=== PATIENT | male | born 1995 | race African-American/Black ===

== ENCOUNTER 2016-10-02 14:29 | Emergency (ER) | payer SELFPAY ==
[~2016-10-02] VITALS: Ht 177.8 cm; Wt 130.0 kg
[2016-10-02 14:32] VITALS: BP 154/78; PULSE 101; RESP 18; TEMP 101.3; O2SAT 98
--- NOTE | 2016-10-02 14:41 | PD ---
Physical Exam Date Seen by Provider: Oct 02, 2016 Time Seen by Provider: 14:39 Narrative 21 yo male here for N/V/D. This started today. Fever noted. No abdominal pain. No one else sick. No allergies. Vomit x 3. Vitals are stable in triage. Awaiting bed placement. Data Data Last Documented VS Vital Signs Date Time Temp Pulse Resp B/P Pulse Ox O2 Delivery O2 Flow Rate FiO2 10/02/16 14:32 101.3 101 18 154/78 98 Room Air [facility] Medical Record Reviewed: Yes Supervised Visit with GORDON: No Scripts No Active Prescriptions or Reported Meds Aries Priest Oct 02, 2016 14:41
[2016-10-02] MEDS ORDERED: SODIUM CHLOR 0.9% 1000 ML INJ 1,000 ML IV SCH (14:53)
[2016-10-02] MEDS ORDERED: SODIUM CHLORIDE 0.9% FLUSH 10 ML FLUSH IV FLUSH PRN (15:00)
[2016-10-02] MEDS ORDERED: ONDANSETRON HCL 4 MG/2 ML VIAL IVP ONE (15:00)
--- NOTE | 2016-10-02 15:04 | PD ---
HPI Chief Complaint: GI Complaint Time Seen by Provider: 14:45 Travel History International Travel<30 days: No Contact w/Intl Traveler<30days: No Traveled to known affect area: No History of Present Illness HPI 21-year-old male with chief complaint of nausea vomiting diarrhea since 5 AM. He denies abdominal pain. He reports multiple family members with cough,cold, flu-type symptoms. He reports at least 4 episodes of vomiting today and 3 episodes of loose nonbloody stools. He was noted to have a fever in triage. He denies headache, chest pain, abdominal pain, dysuria. Symptoms severity is mild to moderate. No aggravating or alleviating factors. PFSH Past Medical History Medical History: Denies Significant Hx Diabetes: No Social History Alcohol Use: No Tobacco Use: No Substance Use: No Allergies-Medications (Allergen,Severity, Reaction): Coded Allergies: No Known Allergies (Verified , 10/02/16) Reported Meds & Prescriptions Reported Meds & Active Scripts Active No Active Prescriptions or Reported Medications Review of Systems Except as stated in HPI: all other systems reviewed are Neg Eyes: No: Visual changes HENT: No: Headaches Cardiovascular: No: Chest Pain or Discomfort Respiratory: No: Shortness of Breath Gastrointestinal: Positive: Nausea, Vomiting, Diarrhea Physical Exam Narrative GENERAL: Alert, well-appearing male in no acute distress. Patient resting comfortably on bed. SKIN: Focused skin assessment warm/dry. HEAD: Atraumatic. Normocephalic. EYES: Pupils equal and round. No scleral icterus. No injection or drainage. ENT: No nasal bleeding or discharge. Mucous membranes pink and moist. NECK: Trachea midline. No JVD. CARDIOVASCULAR: Regular rate and rhythm. No murmur appreciated. RESPIRATORY: No accessory muscle use. Clear to auscultation. Breath sounds equal bilaterally. GASTROINTESTINAL: Abdomen soft, non-tender, nondistended. Hepatic and splenic margins not palpable. MUSCULOSKELETAL: No obvious deformities. No clubbing. No cyanosis. No edema. NEUROLOGICAL: Awake and alert. No obvious cranial nerve deficits. Motor grossly within normal limits. Normal speech. PSYCHIATRIC: Appropriate mood and affect; insight and judgment normal. Data Data Last Documented VS Vital Signs Date Time Temp Pulse Resp B/P Pulse Ox O2 Delivery O2 Flow Rate FiO2 10/02/16 16:40 100.2 90 20 127/58 95 Room Air Orders Complete Blood Count With Diff (10/02/16 14:53) Comprehensive Metabolic Panel (10/02/16 14:53) Lipase (10/02/16 14:53) Urinalysis - C+S If Indicated (10/02/16 14:53) Iv Access Insert/Monitor (10/02/16 14:53) Ondansetron Inj (Zofran Inj) (10/02/16 15:00) Sodium Chlor 0.9% 1000 Ml Inj (Ns 1000 M (10/02/16 14:53) Sodium Chloride 0.9% Flush (Ns Flush) (10/02/16 15:00) Acetaminophen (Tylenol) (10/02/16 15:30) Labs Laboratory Tests Test 10/02/16 10/02/16 15:15 16:07 White Blood Count 4.9 TH/MM3 Red Blood Count 6.70 MIL/MM3 Hemoglobin 17.7 GM/DL Hematocrit 53.0 % Mean Corpuscular Volume 79.2 FL Mean Corpuscular Hemoglobin 26.4 PG Mean Corpuscular Hemoglobin 33.4 % Concent Red Cell Distribution Width 12.7 % Platelet Count 172 TH/MM3 Mean Platelet Volume 9.0 FL Neutrophils (%) (Auto) 81.0 % Lymphocytes (%) (Auto) 7.8 % Monocytes (%) (Auto) 10.9 % Eosinophils (%) (Auto) 0.0 % Basophils (%) (Auto) 0.3 % Neutrophils # (Auto) 3.9 TH/MM3 Lymphocytes # (Auto) 0.4 TH/MM3 Monocytes # (Auto) 0.5 TH/MM3 Eosinophils # (Auto) 0.0 TH/MM3 Basophils # (Auto) 0.0 TH/MM3 CBC Comment DIFF FINAL Differential Comment Sodium Level 138 MEQ/L Potassium Level 3.8 MEQ/L Chloride Level 105 MEQ/L Carbon Dioxide Level 21.9 MEQ/L Anion Gap 11 MEQ/L Blood Urea Nitrogen 12 MG/DL Creatinine 1.50 MG/DL Estimat Glomerular Filtration 72 ML/MIN Rate Random Glucose 93 MG/DL Calcium Level 9.0 MG/DL Total Bilirubin 0.5 MG/DL Aspartate Amino Transf 17 U/L (AST/SGOT) Alanine Aminotransferase 23 U/L (ALT/SGPT) Alkaline Phosphatase 84 U/L Total Protein 8.5 GM/DL Albumin 4.3 GM/DL Lipase 125 U/L Urine Color LIGHT-YELLOW Urine Turbidity CLEAR Urine pH 6.5 Urine Specific [place] 1.007 Urine Protein 100 mg/dL Urine Glucose (UA) NEG mg/dL Urine Ketones NEG mg/dL Urine Occult Blood SMALL Urine Nitrite NEG Urine Bilirubin NEG Urine Urobilinogen LESS THAN 2.0 MG/DL Urine Leukocyte Esterase NEG Urine RBC 6 /hpf Urine WBC 3 /hpf Microscopic Urinalysis Comment CULT NOT INDICATED MDM Medical Decision Making Medical Screen Exam Complete: Yes Emergency Medical Condition: Yes Differential Diagnosis viral gastroenteritis, gastritis, dehydration Narrative Course 21 yo male with n/v/d since 5 am. no and pain. His physical exam is reassuring. His abdomen is soft and nontender. IV access established, labs ordered and pending, UA pending, 1 L normal saline and Zofran administered. CBC unremarkable BMP mild elevation of BUN/CR likely caused by mild dehydration, patient received IV fluids in ED UA negative for infection Patient reassessed he reports symptom improvement. He has had no vomiting while in the ED. His abdomen was reassessed. It is soft and nontender. Return precautions discussed. Patient verbalized understanding and agrees to plan. Diagnosis Primary Impression: Viral gastroenteritis Referrals: Primary Care Physician Additional Instructions: Stay well hydrated by drinking plenty of fluids. Eat a bland diet Return to the emergency department if he developed new or worsening symptoms such as abdominal pain. Scripts Promethazine (Phenergan)25 Mg [id number] Mg PO Q6H PRN (NAUSEA OR VOMITING) #12 TAB Ref 0 Prov:Charla Al 10/02/16 Disposition: 01 DISCHARGE HOME Condition: Stable Charla Al Oct 02, 2016 15:04
[2016-10-02 15:24] VITALS: TEMP 101.9
[2016-10-02] MEDS ORDERED: ACETAMINOPHEN 500 MG CPLT PO ONE (15:30)
[2016-10-02 15:49] LABS: AUTOMATED NEUTROPHIL # 3.9 TH/MM3 (1.8-7.7); BASOPHIL % 0.3 % (0.0-2.0); HEMO FLAGS DIFF FINAL; LYMPH % 7.8 % (9.0-44.0); LYMPHOCYTE # 0.4 TH/MM3 (1.0-4.8); MEAN CELL VOLUME 79.2 FL (80.0-100.0); MEAN CORPUSCULAR HEMOGLOBIN 26.4 PG (27.0-34.0); MEAN CORPUSCULAR HGB CONC 33.4 % (32.0-36.0); MONO % 10.9 % (0.0-8.0); PLATELET COUNT 172 TH/MM3 (150-450); RED CELL DISTRIBUTION WIDTH 12.7 % (11.6-17.2); WHITE BLOOD COUNT 4.9 TH/MM3 (4.0-11.0)
[2016-10-02 16:13] LABS: ALT (GPT) 23 U/L (9-52); ANION GAP 11 MEQ/L (5-15); AST (GOT) 17 U/L (15-39); BICARBONATE 21.9 MEQ/L (21.0-32.0); BLOOD UREA NITROGEN 12 MG/DL (7-18); CHLORIDE 105 MEQ/L (98-107); GLOMERULAR FILTRATION RATE 72 ML/MIN (>89); POTASSIUM 3.8 MEQ/L (3.5-5.1); SODIUM (NA) 138 MEQ/L (136-145)
[2016-10-02 16:15] LABS: ALKALINE PHOSPHATASE 84 U/L (45-117); TOTAL BILIRUBIN ADULT 0.5 MG/DL (0.2-1.0)
[2016-10-02 16:33] LABS: BLOOD, URINE SMALL (NEG); COMMENT (UR) CULT NOT INDICATED; CULTURE IF INDICATED CULT NOT INDICATED; GLUCOSE,URINE NEG (NEG); KETONE, URINE NEG (NEG); NITRITE,URINE NEG (NEG); PH, URINE 6.5 (5.0-8.5); URINE COLOR LIGHT-YELLOW (YELLW/STRAW)
[2016-10-02 16:40] VITALS: BP 127/58; PULSE 90; RESP 20; TEMP 100.2; O2SAT 95
[2016-10-02] MEDS ORDERED: PROM25TA10 PO (16:52)
--- NOTE | 2016-10-02 17:16 | PD ---
Data Data Last Documented VS Vital Signs Date Time Temp Pulse Resp B/P Pulse Ox O2 Delivery O2 Flow Rate FiO2 10/02/16 16:40 100.2 90 20 127/58 95 Room Air Orders Complete Blood Count With Diff (10/02/16 14:53) Comprehensive Metabolic Panel (10/02/16 14:53) Lipase (10/02/16 14:53) Urinalysis - C+S If Indicated (10/02/16 14:53) Iv Access Insert/Monitor (10/02/16 14:53) Ondansetron Inj (Zofran Inj) (10/02/16 15:00) Sodium Chlor 0.9% 1000 Ml Inj (Ns 1000 M (10/02/16 14:53) Sodium Chloride 0.9% Flush (Ns Flush) (10/02/16 15:00) Acetaminophen (Tylenol) (10/02/16 15:30) Labs Laboratory Tests Test 10/02/16 10/02/16 15:15 16:07 White Blood Count 4.9 TH/MM3 Red Blood Count 6.70 MIL/MM3 Hemoglobin 17.7 GM/DL Hematocrit 53.0 % Mean Corpuscular Volume 79.2 FL Mean Corpuscular Hemoglobin 26.4 PG Mean Corpuscular Hemoglobin 33.4 % Concent Red Cell Distribution Width 12.7 % Platelet Count 172 TH/MM3 Mean Platelet Volume 9.0 FL Neutrophils (%) (Auto) 81.0 % Lymphocytes (%) (Auto) 7.8 % Monocytes (%) (Auto) 10.9 % Eosinophils (%) (Auto) 0.0 % Basophils (%) (Auto) 0.3 % Neutrophils # (Auto) 3.9 TH/MM3 Lymphocytes # (Auto) 0.4 TH/MM3 Monocytes # (Auto) 0.5 TH/MM3 Eosinophils # (Auto) 0.0 TH/MM3 Basophils # (Auto) 0.0 TH/MM3 CBC Comment DIFF FINAL Differential Comment Sodium Level 138 MEQ/L Potassium Level 3.8 MEQ/L Chloride Level 105 MEQ/L Carbon Dioxide Level 21.9 MEQ/L Anion Gap 11 MEQ/L Blood Urea Nitrogen 12 MG/DL Creatinine 1.50 MG/DL Estimat Glomerular Filtration 72 ML/MIN Rate Random Glucose 93 MG/DL Calcium Level 9.0 MG/DL Total Bilirubin 0.5 MG/DL Aspartate Amino Transf 17 U/L (AST/SGOT) Alanine Aminotransferase 23 U/L (ALT/SGPT) Alkaline Phosphatase 84 U/L Total Protein 8.5 GM/DL Albumin 4.3 GM/DL Lipase 125 U/L Urine Color LIGHT-YELLOW Urine Turbidity CLEAR Urine pH 6.5 Urine Specific [place] 1.007 Urine Protein 100 mg/dL Urine Glucose (UA) NEG mg/dL Urine Ketones NEG mg/dL Urine Occult Blood SMALL Urine Nitrite NEG Urine Bilirubin NEG Urine Urobilinogen LESS THAN 2.0 MG/DL Urine Leukocyte Esterase NEG Urine RBC 6 /hpf Urine WBC 3 /hpf Microscopic Urinalysis Comment CULT NOT INDICATED MDM Supervised Visit with GORDON: Yes Narrative Course The history, exam, and medical decision-making in the associated midlevel provider note were completed with my assistance. I reviewed and agree with the findings presented. I attest that I had a [id number] encounter with the patient on the same day, and personally performed and documented my assessment and findings in the medical record. *My assessment and Findings: This is a 21-year-old male who presents to the emergency department with nausea vomiting and diarrhea. He has a fever here. Multiple family members are sick with similar symptoms. He has a completely benign abdomen and denies any abdominal pain. I discussed with him the signs and symptoms of appendicitis and he'll return to the emergency department if he develops abdominal pain. I suspect he is gastroenteritis. Feels much better after antiemetics and IV fluids. I think is appropriate for outpatient management. Diagnosis Primary Impression: Viral gastroenteritis Referrals: Primary Care Physician Patient Instructions: General Instructions Departure Forms: Tests/Procedures Additional Instruction: Stay well hydrated by drinking plenty of fluids. Eat a bland diet Return to the emergency department if he developed new or worsening symptoms such as abdominal pain. Scripts Promethazine (Phenergan)25 Mg [id number] Mg PO Q6H PRN (NAUSEA OR VOMITING) #12 TAB Ref 0 Prov:Charla AlP 10/02/16 Disposition: 01 DISCHARGE HOME Condition: Stable Steff Hernandez MD Oct 02, 2016 17:15
== END 2016-10-02 17:17 | disposition home or self-care (01) ==
LOC: NEPD 14:29
DX: A08.4 Viral intestinal infection, unspecified (principal); E86.0 Dehydration
CPT/HCPCS: 80053; 81001; 83690; 85025; 96361; 96374; 99284; J2405; J7030

== ENCOUNTER 2017-02-22 13:47 | Emergency (ER) | payer SELFPAY ==
[~2017-02-22 13:47] MED LIST: PROM25TA10 PO
[2017-02-22 13:48] VITALS: BP 158/109; PULSE 107; RESP 16; TEMP 98.7; O2SAT 99
[2017-02-22 14:24] VITALS: BP 131/83; PULSE 97; RESP 16; O2SAT 98
--- NOTE | 2017-02-22 14:25 | PD ---
HPI Chief Complaint: Cold / Flu Symptoms Time Seen by Provider: 14:00 Travel History International Travel<30 days: No Contact w/Intl Traveler<30days: No Traveled to known affect area: No History of Present Illness HPI This is a 21-year-old male who presents with nasal congestion, cough, sore throat times one day. He denies fever or chills. He presents with a roommate who has similar symptoms. He is requesting a work note. He has not attempted any [id number] medications for symptom relief. Symptom severity is mild. [facility] Past Medical History Medical History: Denies Significant Hx Diabetes: No Diminished Hearing: No Social History Alcohol Use: No Tobacco Use: No Substance Use: No Allergies-Medications (Allergen,Severity, Reaction): Coded Allergies: No Known Allergies (Verified , 10/02/16) Reported Meds & Prescriptions Reported Meds & Active Scripts Active No Active Prescriptions or Reported Medications Review of Systems Except as stated in HPI: all other systems reviewed are Neg General / Constitutional: No: Fever Eyes: No: Visual changes HENT: Positive: Sore Throat, Congestion, No: Headaches Cardiovascular: No: Chest Pain or Discomfort Respiratory: Positive: Cough Gastrointestinal: No: Abdominal Pain Genitourinary: No: Dysuria Musculoskeletal: No: Pain Skin: No Rash Neurologic: No: Weakness Psychiatric: No: Depression Physical Exam Narrative GENERAL: Alert male well-appearing. SKIN: Warm and dry. No rashes. HEAD: Normocephalic. EYES: No injection or drainage. EYES: PERRL, EOMI, no discharge or injection. No scleral icterus. NOSE: Nasal turbinates appear normal without nasal blood, purulent drainage or septal hematoma. THROAT: Mucosa pink and moist. No erythema or exudates. No uvular edema. No uvular, palatal, or tonsillar deviation. Airway patent. NECK: Supple, trachea midline. No lymphadenopathy. No meningismus. CARDIOVASCULAR: Regular rate and rhythm without murmurs, gallops, or rubs. RESPIRATORY: Breath sounds equal bilaterally. No accessory muscle use. GASTROINTESTINAL: Abdomen soft, non-tender, nondistended. Data Data Last Documented VS Vital Signs Date Time Temp Pulse Resp B/P (MAP) Pulse Ox O2 Delivery O2 Flow Rate FiO2 02/22/17 13:48 98.7 107 16 158/109 (125) 99 Room Air MDM Medical Decision Making Medical Screen Exam Complete: Yes Emergency Medical Condition: Yes Differential Diagnosis Mild Viral URI, influenza, strep pharyngitis Narrative Course 21-year-old male who is well-appearing with stable vital signs presents with mild viral URI like symptoms requesting a work note. He has not attempted any [id number] medications for symptom relief. His exam is essentially benign with the exception of mild nasal congestion. His lungs are clear. In triage he was noted to be mildly tachycardic with a heart rate of 107. On recheck his heart rate was 97. A medical screening exam was performed: At the time of evaluation the presenting medical condition was determined not to be of an emergent nature. The patient was given the option of receiving additional care, but declined. Patient was given options for additional community resources from which to obtain care. The Patient Has Been advised to seek medical attention for their presenting complaint. The patient has been advised to return to the ER at any time if an emergent condition develops. Diagnosis Primary Impression: Encounter for medical screening examination Referrals: [facility] No Active Prescriptions or Reported Meds Disposition: 01 DISCHARGE HOME Condition: Stable Charla Al Feb 22, 2017 14:25
== END 2017-02-22 14:31 | disposition left against medical advice (07) ==
LOC: NEPK 13:47
DX: J02.9 Acute pharyngitis, unspecified (principal)
CPT/HCPCS: 99281